=== PATIENT | female | born 1995 | race Two or more races ===

== ENCOUNTER 2020-06-15 20:42 | Emergency (ER) | payer MEDICAID, OTHER ==
[~2020-06-15] VITALS: Ht 157.5 cm; Wt 49.2 kg
[2020-06-15] MEDS ORDERED: ONDANSETRON 2MG/ML, 2ML IVPush ONE (21:00)
[2020-06-15] MEDS ORDERED: SODIUM CHLORIDE 0.9% 1,000ML IVBOLUS ONE (21:00)
[2020-06-15 21:37] LABS: BASOPHILS % (AUTO) 0 % (0-1); EOSINOPHILS % (AUTO) 0 % (1-7); LYMPHOCYTES % (AUTO) 9 % (22-44); MEAN CORPUSCULAR HEMOGLOBIN 28.2 pg (27.0-34.8); MEAN CORPUSCULAR HGB CONC 34.1 g/dL (32.4-35.8); MEAN PLATELET VOLUME 8.3 fL (7.4-10.4); MONOCYTES % (AUTO) 3 % (2-9); NEUTROPHILS % (AUTO) 87 % (42-75); PLATELET COUNT 238 x10^3/uL (130-400); RED BLOOD COUNT 4.58 x10^6/uL (3.82-5.3); RED CELL DISTRIBUTION WIDTH 14.8 % (9.6-15.2)
[2020-06-15 21:48] LABS: ALBUMIN 3.5 g/dL (3.4-5.0); ANION GAP 8 mmol/L (5-15); CHLORIDE 110 mmol/L (98-107); CREATININE 0.55 mg/dL (0.55-1.02)
[2020-06-15] MEDS ORDERED: ONDANSETRON 2MG/ML, 2ML ONE (21:48)
[2020-06-15 21:55] LABS: MD SCAN
--- NOTE | 2020-06-15 21:55 | NUR ---
PT REPORTS COMING IN TODAY DUE TO N/V AND [id number]. STATES SHE IS WITH TWINS, WAS SEEN AT [facility] YESTERDAY AND STATES SHE CANT KEEP ANY MEDICATIONS DOWN AND IS CONSTANTLY NAUSEATED. PT HR IS SLIGHT TACHY. MEDICATED PER MAR, NAD, DENIES ADDITIONAL QUESTIONS OR NEEDS, PLACED ON SPO2/BP MONITORING, SO AT BS. BED IN LOWEST, RAILS ENGAGED, CALL LIGHT ON LAP, WCTM.
--- NOTE | 2020-06-15 22:40 | NUR ---
PT RESTING ON GURNEY, NAD, APPEARS COMFORTABLE, VSS, WCTM.
[2020-06-15 23:05] VITALS: BP 105/80
--- NOTE | 2020-06-15 23:43 | NUR ---
Patient given discharge instructions and they have confirmed that they understand the instructions. Patient ambulatory with steady gait. NAD, DENIES ADDITIONAL QUESTIONS OR NEEDS, NO PERSONAL BELONGINGS LEFT IN ROOM AFTER DC.
== END 2020-06-15 23:42 | disposition home or self-care (01) ==
LOC: ED 22:49
DX: O21.0 Mild hyperemesis gravidarum (principal); Z3A.10 10 weeks gestation of pregnancy
CPT/HCPCS: 36415; 80048; 82040; 85025; 96361; 96374; 99283; J2405; J7030